=== PATIENT | female | born 1995 | race Hispanic/Latino ===

== ENCOUNTER 2021-09-11 19:49 | Emergency (ER) | payer OTHER, SELFPAY ==
[2021-09-11] MEDS ORDERED: Boostrix 0.5 ML (Tdap) VIAL ONE (21:07)
== END 2021-09-11 21:30 | disposition home or self-care (01) ==
LOC: ERS 19:49
DX: S01.21XA Laceration without foreign body of nose, initial encounter (principal); W26.8XXA Contact with other sharp object(s), not elsewhere classified, initial encounter; Y92.69 Other specified industrial and construction area as the place of occurrence of the external cause; Z23 Encounter for immunization
CPT/HCPCS: 90471; 90715